=== PATIENT | female | born 1985 | race Caucasian/White ===

== ENCOUNTER 2017-11-02 21:20 | Observation (INO) | payer MEDICAID ==
[~2017-11-02] VITALS: Ht 149.9 cm; Wt 70.0 kg
[2017-11-02 21:21] VITALS: BP 126/62; PULSE 87; RESP 16; TEMP 98.5; O2SAT 100
[2017-11-02 22:00] VITALS: BP 127/61; PULSE 78; RESP 14; O2SAT 99
[2017-11-02] MEDS ORDERED: NITROGLYCERIN 0.4 MG SL 25 TABS/BTL SL ONE (22:15)
[2017-11-02] MEDS ORDERED: ASPIRIN 325 MG TAB PO ONE (22:15)
--- NOTE | 2017-11-02 22:25 | PD ---
HPI Chief Complaint: Chest Pain Time Seen by Provider: 22:03 Travel History International Travel<30 days: No Contact w/Intl Traveler<30days: No Traveled to known affect area: No History of Present Illness HPI 32-year-old female that presents to the ED for evaluation of chest pain. Patient has had this chest pain since around 1:00 this afternoon. Per patient the chest pain did not go more severe until 7:00. She's never had this before. Per patient he feels like a pressure. Feels like something sitting on her chest and it feels like her heart palpitates and that he states that the day when he calms down it gets or shortness of breath. She denies having any history of this in the past. No history of heart disease on herself but she states that she has a long family history of multiple members including grandmother as well as mother having from heart attack at a young age. Per patient and her mother at age 45 and grandmother at age 50 and both of them had heart issues starting on her 30s. She did took an aspirin before this started. Denies any urinary or bowel movement issues. No cough or runny nose. States feeling dizzy. Based is mainly on the chest and does not move anywhere. No trauma or injury. No allergies to medication. Hasn't seen anybody for this. Per patient the pain is 7 out of 10. States having a history of smoking in the past. PFSH Past Medical History Respiratory: Yes (PE) ?: Not LMP: 10/07/17 Social History Alcohol Use: No Tobacco Use: No Substance Use: No Allergies-Medications (Allergen,Severity, Reaction): Coded Allergies: No Known Allergies (Unverified , 11/02/17) Review of Systems Except as stated in HPI: all other systems reviewed are Neg Physical Exam Narrative GENERAL: SKIN: Warm and dry. HEAD: Atraumatic. Normocephalic. EYES: Pupils equal and round. No scleral icterus. No injection or drainage. ENT: No nasal bleeding or discharge. Mucous membranes pink and moist. Tongue is midline. No uvula deviation. NECK: Trachea midline. No JVD. CARDIOVASCULAR: Regular rate and rhythm. No murmurs, S3, S4. RESPIRATORY: No accessory muscle use. Clear to auscultation. Breath sounds equal bilaterally. GASTROINTESTINAL: Abdomen soft, non-tender, nondistended. Hepatic and splenic margins not palpable. MUSCULOSKELETAL: Extremities without clubbing, cyanosis, or edema. No obvious deformities. Full range of motion of the upper and lower extremities bilaterally. 2+ pulses bilaterally. NEUROLOGICAL: Awake and alert. No obvious cranial nerve deficits. Motor grossly within normal limits. Five out of 5 muscle strength in the arms and legs. Normal speech. PSYCHIATRIC: Appropriate mood and affect; insight and judgment normal. Data Data Last Documented VS Vital Signs Date Time Temp Pulse Resp B/P (MAP) Pulse Ox O2 Delivery O2 Flow Rate FiO2 11/02/17 22:07 78 16 98 Room Air 11/02/17 21:21 98.5 126/62 (83) Orders Orders Electrocardiogram (11/02/17 22:09) Complete Blood Count With Diff (11/02/17 22:09) Comprehensive Metabolic Panel (11/02/17 22:09) Ckmb (Isoenzyme) Profile (11/02/17 22:09) Troponin I (11/02/17 22:09) Prothrombin Time / Inr (Pt) (11/02/17 22:09) Act Partial Throm Time (Ptt) (11/02/17 22:09) Lipase (11/02/17 22:09) D-Dimer (11/02/17 22:09) Magnesium (Mg) (11/02/17 22:09) Chest, Single Ap (11/02/17 22:09) Iv Access Insert/Monitor (11/02/17 22:09) Ecg Monitoring (11/02/17 22:09) Oximetry (11/02/17 22:09) Aspirin (Aspirin) (11/02/17 22:15) Nitroglycerin Sl (Nitrostat Sl) (11/02/17 22:15) MDM Medical Decision Making Medical Screen Exam Complete: Yes Emergency Medical Condition: Yes Medical Record Reviewed: Yes Interpretation(s) EKG shows sinus rhythm with no sign of acute ischemia or arrythmia read by me and attending. Differential Diagnosis Chest pain versus ACS versus angina versus anxiety versus PE versus NSTEMI Narrative Course 32-year-old female that presents to the ED for evaluation of chest pain. Patient was properly examined and was found to have signs and symptoms concerning with cardiac disease. She does have a significant family history. She has never been here before and upper she doesn't have any risk factors other than family history is concerning the way she is describing her pain. She did tell me that she's had DVTs in the past years ago and no longer takes any blood thinners. This time I recommend labs and imaging. Labs and imaging were ordered. Given aspirin and nitro. Case will be signed out to my attending pending disposition likely admission to the chest pain center if everything is negative. Bandar Islas Nov 02, 2017 22:25
--- NOTE | 2017-11-02 22:36 | RADRPT ---
EXAM DATE/TIME: 11/02/2017 22:27 [facility] COMPARISON: No previous studies available for comparison. INDICATIONS : Chest pain. MEDICAL HISTORY : None. SURGICAL HISTORY : Fusion, thoracic. ENCOUNTER: Initial ACUITY: 1 day PAIN SCORE: 7/10 LOCATION: Bilateral chest FINDINGS: A single view of the chest demonstrates the lungs to be symmetrically aerated without evidence of mas s, infiltrate or effusion. The cardiomediastinal contours are unremarkable. Fixation hardware in the thoracolumbar spine. Osseous structures are intact. CONCLUSION: 1. No acute cardiopulmonary disease. Danny Denis MD on November 02, 2017 at 22:34 Board Certified Radiologist. This report was verified electronically.
[2017-11-02 22:44] LABS: AUTOMATED NEUTROPHIL # 7.6 TH/MM3 (1.8-7.7); BASOPHIL # 0.1 TH/MM3 (0-0.2); BASOPHIL % 0.7 % (0.0-2.0); EOSINOPHIL # 0.5 TH/MM3 (0-0.4); EOSINOPHIL % 3.7 % (0.0-4.0); HEMOGLOBIN 13.2 GM/DL (11.6-15.3); LYMPH % 33.3 % (9.0-44.0); LYMPHOCYTE # 4.5 TH/MM3 (1.0-4.8); MEAN CELL VOLUME 92.5 FL (80.0-100.0); MEAN CORPUSCULAR HEMOGLOBIN 32.2 PG (27.0-34.0); MEAN CORPUSCULAR HGB CONC 34.8 % (32.0-36.0); MEAN PLATELET VOLUME 7.5 FL (7.0-11.0); MONO % 6.1 % (0.0-8.0); MONOCYTE # 0.8 TH/MM3 (0-0.9); NEUT % 56.2 % (16.0-70.0); PLATELET COUNT 297 TH/MM3 (150-450); RED CELL DISTRIBUTION WIDTH 12.6 % (11.6-17.2); WHITE BLOOD COUNT 13.5 TH/MM3 (4.0-11.0)
[2017-11-02 22:46] VITALS: RESP 14; O2SAT 99
[2017-11-02 22:58] LABS: ALBUMIN 3.5 GM/DL (3.4-5.0); ALT (GPT) 25 U/L (10-53); AST (GOT) 14 U/L (15-37); BICARBONATE 28.2 MEQ/L (21.0-32.0); BLOOD UREA NITROGEN 14 MG/DL (7-18); CALCIUM 8.3 MG/DL (8.5-10.1); CHLORIDE 108 MEQ/L (98-107); CREATININE 0.71 MG/DL (0.50-1.00); GLOMERULAR FILTRATION RATE 96 ML/MIN (>89); GLUCOSE,RANDOM 87 MG/DL (74-106); MAGNESIUM 2.2 MG/DL (1.5-2.5); SODIUM (NA) 141 MEQ/L (136-145)
[2017-11-02 23:02] LABS: ALKALINE PHOSPHATASE 46 U/L (45-117); TOTAL BILIRUBIN ADULT 0.1 MG/DL (0.2-1.0); TOTAL PROTEIN 6.6 GM/DL (6.4-8.2); TROPONIN I LESS THAN 0.02 NG/ML (0.02-0.05)
[2017-11-02 23:10] LABS: INTERNATIONAL NORMALIZED RATIO 0.9 RATIO; PROTHROMBIN TIME - PATIENT 9.5 SEC (9.8-11.6)
[2017-11-02 23:16] LABS: D-DIMER 0.62 MG/L FEU (0.00-0.50)
[2017-11-03] VITALS (7 sets, daily range): BP systolic 87–107; BP diastolic 44–55; PULSE 61–70; RESP 14–18; TEMP 95.9–98.1; O2SAT 94–98
[2017-11-03] MEDS ORDERED: MORPHINE SULFATE 2 MG/ML INJ IV PUSH ONE (01:00)
[2017-11-03] MEDS ORDERED: SODIUM CHLORIDE 0.9% FLUSH 10 ML FLUSH IV FLUSH PRN (02:15)
[2017-11-03 03:49] LABS: TROPONIN I LESS THAN 0.02 NG/ML (0.02-0.05)
[2017-11-03] MEDS: MORPHINE SULFATE 2 MG/ML INJ IV PRN ×2 (05:02→10:01)
[2017-11-03 06:35] LABS: TROPONIN I LESS THAN 0.02 NG/ML (0.02-0.05)
[2017-11-03] MEDS ORDERED: ONDANSETRON HCL 4 MG/2 ML VIAL IV PUSH PRN (07:30)
[2017-11-03] MEDS ORDERED: NITROGLYCERIN 0.4 MG SL 25 TABS/BTL SL PRN (07:30)
[2017-11-03] MEDS ORDERED: ACETAMINOPHEN 500 MG CPLT PO PRN (07:30)
[2017-11-03] MEDS ORDERED: SODIUM CHLORIDE 0.9% FLUSH 10 ML FLUSH IV FLUSH SCH (09:00)
[2017-11-03] MEDS ORDERED: ASPIRIN 325 MG TAB PO SCH (09:00)
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
[2017-11-03] MEDS ORDERED: IOHEXOL 350 MG/ML 10 ML VIAL (for RAD DIAG) IVCONTRAST ONE (09:50)
--- NOTE | 2017-11-03 10:10 | RADRPT ---
EXAM DATE/TIME: 11/03/2017 09:46 [facility] COMPARISON: No previous studies available for comparison. INDICATIONS : Substernal chest pain for two days. IV CONTRAST: 50 cc Omnipaque 350 (iohexol) IV RADIATION DOSE: 11.66 CTDIvol (mGy) MEDICAL HISTORY : pulmonary embolism SURGICAL HISTORY : Tubal ligation. ENCOUNTER: Initial ACUITY: 2 days PAIN SCALE: 6/10 LOCATION: substernal chest TECHNIQUE: Volumetric scanning of the chest was performed using a pulmonary embolism protocol MIP images were re constructed. Using automated exposure control and adjustment of the mA and/or kV according to patien t size, radiation dose was kept as low as reasonably achievable to obtain optimal diagnostic quality images. DICOM format image data is available electronically for review and comparison. Follow-up recommendations for detected pulmonary nodules are based at a minimum on nodule size and pa tient risk factors according to Fleischner Society Guidelines. FINDINGS: PULMONARY ARTERIES: No filling defects are seen in the pulmonary arteries through the segmental level. LUNGS: There is no consolidation or pneumothorax . No concerning pulmonary nodule is visualized. PLEURAE: There is no pleural thickening or pleural effusion. MEDIASTINUM: There is good visualization of the great vessels of the middle mediastinum. No evidence of mediastin al or hilar adenopathy/mass. MUSCULOSKELETAL: There is surgical hardware at the lower thoracic spine. MISCELLANEOUS: The visualized upper abdominal organs demonstrate no acute abnormality. Bilateral breast implants are present. CONCLUSION: No pulmonary embolus. Dustin Huang MD on November 03, 2017 at 10:07 Board Certified Radiologist. This report was verified electronically.
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
[2017-11-03] MEDS ORDERED: KETOROLAC TROMETHAMINE 30 MG/ML (IVP) VIAL IV PUSH ONE (11:30)
--- NOTE | 2017-11-03 16:35 | EKG ---
Date Performed: 11/03/2017 Time Performed: 02:58:28 PTAGE: 32 years EKG: SINUS BRADYCARDIA BORDERLINE ECG NO SIG CHANGE PREVIOUS TRACING : 11/02/2017 22.16 DOCTOR: Martin Dennis Interpretating Date/Time 11/03/2017 16:33:35
--- NOTE | 2017-11-03 16:35 | EKG ---
Date Performed: 11/03/2017 Time Performed: 05:40:21 PTAGE: 32 years EKG: Sinus rhythm NORMAL ECG NO PREVIOUS TRACING DOCTOR: Martin Dennis Interpretating Date/Time 11/03/2017 16:33:19
--- NOTE | 2017-11-03 16:36 | EKG ---
Date Performed: 11/02/2017 Time Performed: 22:16:32 PTAGE: 32 years EKG: Sinus rhythm NORMAL ECG NO PREVIOUS TRACING DOCTOR: Martin Dennis Interpretating Date/Time 11/03/2017 16:34:27
--- NOTE | 2017-11-03 16:38 | TR ---
Date Performed: 11/03/2017 Time Performed: 10:50:23 DOCTOR: Martin Dennis DRUG LIST: CLINICAL HISTORY: CHEST PAIN REASON FOR TEST: REASON FOR ENDING: OBSERVATION: CONCLUSION: Oscar protocol completed. Stopped sec to reaching target heart rate and leg fatigue. Maximum WX=015 Target HR Thrdjnct=070.0% Maximum DG=380/80 Total Exercise Time=9:23. No reprod chest pain. No ectopy. Great exercise tolerance. Normal bp respionse. St segments upsloping. Recovery quic k and unremarkable. COMMENTS:
== END 2017-11-03 12:42 | disposition home or self-care (01) ==
LOC: NEPE 21:20 → NEDA 11-03 00:27 → NEPHCDU 11-03 03:17
PROVIDERS: ADMIT Internal Medicine Interventional Cardiology; ATTEND Internal Medicine Interventional Cardiology
DX: R07.89 Other chest pain (principal); F41.1 Generalized anxiety disorder; R94.31 Abnormal electrocardiogram [ECG] [EKG]; Z86.718 Personal history of other venous thrombosis and embolism; Z87.891 Personal history of nicotine dependence; Z82.49 Family history of ischemic heart disease and other diseases of the circulatory system
CPT/HCPCS: 71045; 71275; 80053; 82550; 83690; 83735; 84484; 84702; 85025; 85379; 85610; 85730; 93005; 93017; 96374; 96375; 96376; 99285; G0378; J1885; J2270; Q9967

== ENCOUNTER 2017-12-24 09:04 | Emergency (ER) | payer MEDICAID ==
[~2017-12-24] VITALS: Ht 149.9 cm; Wt 68.0 kg
[2017-12-24 09:07] VITALS: BP 138/65; PULSE 90; RESP 18; TEMP 98.3; O2SAT 97
[2017-12-24 09:25] VITALS: BP 129/78; PULSE 84; RESP 18; O2SAT 97
[2017-12-24] MEDS ORDERED: TRAM50TA PO (09:26)
[2017-12-24] MEDS ORDERED: MORP1TAB24 PO (09:26)
--- NOTE | 2017-12-24 10:09 | PD ---
HPI Chief Complaint: Chest Pain Time Seen by Provider: 09:48 Travel History International Travel<30 days: No Contact w/Intl Traveler<30days: No Traveled to known affect area: No History of Present Illness HPI The patient was seen and examined in the presence of the nurse. This patient has numerous complaints. She reports diffuse body aches. Worst is in her shoulder region. No fall or injury. She reports having a fever at home. She has an occasional cough. No runny nose or congestion. No vomiting or diarrhea or abdominal pains. Symptom severity is moderate. Duration 2 weeks. No alleviating factors. No exacerbating factors. She is not having chest pain. PFSH Past Medical History Cardiovascular Problems: Yes Diabetes: No Medical other: Yes (CHRONIC BACK PAIN) Respiratory: Yes (PE) Tetanus Vaccination: < 5 Years Influenza Vaccination: Yes ?: Not LMP: 12/04/17 Tubal Ligation: Yes Past Surgical History Tonsillectomy: Yes (ADENOIDS WELL) Other Surgery: Yes (CARPAL TUNNEL) Family History Family Myocardial Infarction: Yes (mother at 35, stent at 45) Social History Alcohol Use: No Tobacco Use: Yes (2-3 CIGS A DAY) Substance Use: No Allergies-Medications (Allergen,Severity, Reaction): Coded Allergies: No Known Allergies (Unverified , 12/24/17) Reported Meds & Prescriptions Reported Meds & Active Scripts Active Reported Morphine ER (Morphine Sulfate) 15 Mg Tab 15 Mg PO BID Tramadol (Tramadol HCl) 50 Mg Tab 50 Mg PO Q6H PRN Review of Systems General / Constitutional: Positive: Fever Eyes: No: Visual changes HENT: No: Headaches Cardiovascular: No: Chest Pain or Discomfort Respiratory: Positive: Cough, No: Shortness of Breath Gastrointestinal: No: Abdominal Pain Genitourinary: No: Dysuria Musculoskeletal: Positive: Myalgias, No: Pain Skin: No Rash Neurologic: No: Weakness Psychiatric: Positive: Anxiety, No: Depression Endocrine: No: Polydipsia Hematologic/Lymphatic: No: Easy Bruising Physical Exam Narrative GENERAL: Well-nourished, well-developed patient in no apparent distress. SKIN: Focused skin assessment reveals no rash and nodules. Skin is Warm and dry. HEAD: Atraumatic. Normocephalic. EYES: Pupils equal and round. No scleral icterus. No injection or drainage. ENT: No nasal bleeding or discharge. Mucous membranes pink and moist. Throat clear NECK: Trachea midline. No JVD. No meningeal signs CARDIOVASCULAR: Regular rate and rhythm. No murmur appreciated. RESPIRATORY: No accessory muscle use. Clear to auscultation. Breath sounds equal bilaterally. GASTROINTESTINAL: Abdomen soft, non-tender, nondistended. Hepatic and splenic margins not palpable. MUSCULOSKELETAL: No obvious deformities. No clubbing. No cyanosis. No edema. Has diffuse muscular tenderness of the back and shoulders. No bony tenderness. NEUROLOGICAL: Awake and alert. No obvious cranial nerve deficits. Motor grossly within normal limits. Normal speech. PSYCHIATRIC: Appropriate mood and affect; insight and judgment normal. Data Data Last Documented VS Vital Signs Date Time Temp Pulse Resp B/P (MAP) Pulse Ox O2 Delivery O2 Flow Rate FiO2 12/24/17 13:17 12/24/17 12:40 70 18 98 Room Air 12/24/17 09:07 98.3 Orders Orders Iv Access Insert/Monitor (12/24/17 10:01) Chest, Single Ap (12/24/17 ) Influenzae A/B Antigen (12/24/17 10:01) Urinalysis - C+S If Indicated (12/24/17 10:01) Complete Blood Count With Diff (12/24/17 10:01) Comprehensive Metabolic Panel (12/24/17 10:01) Ed Urine Pregnancytest Poc (12/24/17 10:02) Ketorolac Inj (Toradol Inj) (12/24/17 10:30) Oxycodone-Acetamin 5-325 Mg (Percocet (12/24/17 13:00) Labs Laboratory Tests Test 12/24/17 10:00 White Blood Count 7.2 TH/MM3 Red Blood Count 4.16 MIL/MM3 Hemoglobin 13.4 GM/DL Hematocrit 38.4 % Mean Corpuscular Volume 92.2 FL Mean Corpuscular Hemoglobin 32.2 PG Mean Corpuscular Hemoglobin Concent 34.9 % Red Cell Distribution Width 12.5 % Platelet Count 258 TH/MM3 Mean Platelet Volume 8.0 FL Neutrophils (%) (Auto) 52.7 % Lymphocytes (%) (Auto) 35.7 % Monocytes (%) (Auto) 7.6 % Eosinophils (%) (Auto) 3.5 % Basophils (%) (Auto) 0.5 % Neutrophils # (Auto) 3.8 TH/MM3 Lymphocytes # (Auto) 2.6 TH/MM3 Monocytes # (Auto) 0.5 TH/MM3 Eosinophils # (Auto) 0.3 TH/MM3 Basophils # (Auto) 0.0 TH/MM3 CBC Comment DIFF FINAL Differential Comment Urine Color YELLOW Urine Turbidity CLEAR Urine pH 7.5 Urine Specific [place] 1.013 Urine Protein TRACE mg/dL Urine Glucose (UA) NEG mg/dL Urine Ketones NEG mg/dL Urine Occult Blood NEG Urine Nitrite NEG Urine Bilirubin NEG Urine Urobilinogen LESS THAN 2.0 MG/DL Urine Leukocyte Esterase NEG Urine RBC LESS THAN 1 /hpf Urine WBC 1 /hpf Urine Squamous Epithelial Cells 10 /hpf Urine Bacteria RARE /hpf Urine Mucus MOD /lpf Microscopic Urinalysis Comment CULT NOT INDICATED Blood Urea Nitrogen 8 MG/DL Creatinine 0.74 MG/DL Random Glucose 101 MG/DL Total Protein 6.5 GM/DL Albumin 3.5 GM/DL Calcium Level 8.5 MG/DL Alkaline Phosphatase 43 U/L Aspartate Amino Transf (AST/SGOT) 18 U/L Alanine Aminotransferase (ALT/SGPT) 28 U/L Total Bilirubin 0.3 MG/DL Sodium Level 142 MEQ/L Potassium Level 3.8 MEQ/L Chloride Level 108 MEQ/L Carbon Dioxide Level 27.1 MEQ/L Anion Gap 7 MEQ/L Estimat Glomerular Filtration Rate 92 ML/MIN [facility] Medical Decision Making Medical Screen Exam Complete: Yes Emergency Medical Condition: Yes Medical Record Reviewed: Yes Differential Diagnosis Flu syndrome, fibromyalgia, nonspecific myalgias, viral syndrome Narrative Course I have reviewed the patient's electronic medical record. Patient was recently admitted here for chest pain evaluation and had negative stress test, also negative CTA of the chest Patient has some vague complaints most notably myalgias and fever. May have a viral syndrome. I have ordered lab studies and a chest x-ray Urine is negative Urinalysis was normal I reviewed her chest x-ray which was normal CBC is normal Metabolic profile is normal However, before I could get back to the patient to review the workup and reassess her and come up with a plan she signed out AGAINST MEDICAL ADVICE and left. Prior to her leaving [facility] she was chowing down burger and fries from a fast food restaurant. Diagnosis Primary Impression: Myalgia Additional Impression: Fever Qualified Codes: R50.9 - Fever, unspecified Disposition: AGAINST MEDICAL ADVICE Cheo Lu MD Dec 24, 2017 10:09
--- NOTE | 2017-12-24 10:23 | RADRPT ---
EXAM DATE/TIME: 12/24/2017 10:07 [facility] COMPARISON: CHEST SINGLE AP, November 02, 2017, 22:27. INDICATIONS : Fever and chest pain. MEDICAL HISTORY : None. SURGICAL HISTORY : Lumbar fusion ENCOUNTER: Initial ACUITY: 2 days PAIN SCORE: 8/10 LOCATION: Bilateral chest FINDINGS: A single view of the chest demonstrates the lungs to be symmetrically aerated without evidence of mas s, infiltrate or effusion. The cardiomediastinal contours are unremarkable. Osseous structures are intact with stable transpedicular posterior fixation in the thoracolumbar spine. CONCLUSION: No acute cardiopulmonary process to explain current clinical symptoms. Wilver Galindo MD on December 24, 2017 at 10:15 Board Certified Radiologist. This report was verified electronically.
[2017-12-24] MEDS ORDERED: KETOROLAC TROMETHAMINE 30 MG/ML (IVP) VIAL IVP ONE (10:30)
[2017-12-24 10:33] LABS: AUTOMATED NEUTROPHIL # 3.8 TH/MM3 (1.8-7.7); BASOPHIL % 0.5 % (0.0-2.0); EOSINOPHIL # 0.3 TH/MM3 (0-0.4); EOSINOPHIL % 3.5 % (0.0-4.0); HEMATOCRIT 38.4 % (35.0-46.0); HEMOGLOBIN 13.4 GM/DL (11.6-15.3); LYMPH % 35.7 % (9.0-44.0); LYMPHOCYTE # 2.6 TH/MM3 (1.0-4.8); MEAN CELL VOLUME 92.2 FL (80.0-100.0); MEAN CORPUSCULAR HEMOGLOBIN 32.2 PG (27.0-34.0); MEAN CORPUSCULAR HGB CONC 34.9 % (32.0-36.0); MONO % 7.6 % (0.0-8.0); MONOCYTE # 0.5 TH/MM3 (0-0.9); NEUT % 52.7 % (16.0-70.0); PLATELET COUNT 258 TH/MM3 (150-450); RED BLOOD COUNT 4.16 MIL/MM3 (4.00-5.30); RED CELL DISTRIBUTION WIDTH 12.5 % (11.6-17.2); WHITE BLOOD COUNT 7.2 TH/MM3 (4.0-11.0)
[2017-12-24 10:39] LABS: BACTERIA, URINE RARE /hpf; BILIRUBIN, URINE NEG (NEG); BLOOD, URINE NEG (NEG); GLUCOSE,URINE NEG (NEG); KETONE, URINE NEG (NEG); MUCUS URINE MOD /lpf (OCC); NITRITE,URINE NEG (NEG); PH, URINE 7.5 (5.0-8.5); SQUAMOUS EPITHELIAL CELL URINE 10 /hpf (0-5); URINE COLOR YELLOW (YELLW/STRAW); URINE LEUKOCYTE ESTERASE NEG (NEG)
[2017-12-24 10:57] LABS: ALBUMIN 3.5 GM/DL (3.4-5.0); AST (GOT) 18 U/L (15-37); BICARBONATE 27.1 MEQ/L (21.0-32.0); BLOOD UREA NITROGEN 8 MG/DL (7-18); CALCIUM 8.5 MG/DL (8.5-10.1); CHLORIDE 108 MEQ/L (98-107); CREATININE 0.74 MG/DL (0.50-1.00); GLOMERULAR FILTRATION RATE 92 ML/MIN (>89); GLUCOSE,RANDOM 101 MG/DL (74-106); SODIUM (NA) 142 MEQ/L (136-145)
[2017-12-24 11:02] LABS: ALKALINE PHOSPHATASE 43 U/L (45-117); ALT (GPT) 28 U/L (10-53); TOTAL BILIRUBIN ADULT 0.3 MG/DL (0.2-1.0); TOTAL PROTEIN 6.5 GM/DL (6.4-8.2)
[2017-12-24 12:40] VITALS: BP 135/70; PULSE 70; RESP 18; O2SAT 98
[2017-12-24] MEDS ORDERED: oxyCODONE/ACETAMINOPHEN 5 MG/325 MG TAB PO ONE (13:00)
== END 2017-12-24 13:49 | disposition left against medical advice (07) ==
LOC: NEPC 09:04
DX: M79.1 Myalgia (principal); R50.9 Fever, unspecified; R05 Cough; G89.29 Other chronic pain; M54.9 Dorsalgia, unspecified; Z72.0 Tobacco use; Z53.21 Procedure and treatment not carried out due to patient leaving prior to being seen by health care provider
CPT/HCPCS: 71045; 80053; 81001; 84703; 85025; 87804; 96374; 99284; J1885

== ENCOUNTER 2018-01-24 17:30 | Emergency (ER) | payer MEDICAID ==
[~2018-01-24] VITALS: Ht 149.9 cm; Wt 75.0 kg
[~2018-01-24 17:30] MED LIST: MORP1TAB24 PO; TRAM50TA PO
[2018-01-24 17:42] VITALS: BP 115/56; PULSE 95; RESP 18; TEMP 98.3; O2SAT 97
[2018-01-24] MEDS ORDERED: KETOROLAC TROMETHAMINE 60 MG/2 ML (IM) VIAL IM ONE (18:30)
[2018-01-24] MEDS ORDERED: ORPHENADRINE INJ 60 MG/2 ML AMP IM ONE (18:30)
[2018-01-24] MEDS ORDERED: DEXAMETHASONE SOD PHOS 4 MG/ML VIAL IM ONE (18:30)
--- NOTE | 2018-01-24 18:33 | PD ---
HPI Chief Complaint: Back/ Neck Pain or Injury Time Seen by Provider: 18:22 Travel History International Travel<30 days: No Contact w/Intl Traveler<30days: No Traveled to known affect area: No History of Present Illness HPI 32-year-old female presents to the emergency department for evaluation of low back pain. Patient states she fell down 2 steps on her low back yesterday evening. She reports severe pain since then. She does have history of chronic back pain with previous surgery. She currently takes tramadol and morphine at home for pain. Patient denies any head injury or loss of consciousness. No neck pain. No chest pain or abdominal pain. No vomiting. However, she does feel nauseated from the pain. Patient denies any chance of reporting a previous tubal ligation. Current pain is 10/10 to the lower back that radiates down the left leg. Movement, ambulation exacerbate pain. No alleviating factors. Moderate severity. Patient denies any history of IV drug use. No fevers or chills. No loss of bowel or bladder control. No saddle anesthesias. PFSH Past Medical History Cardiovascular Problems: Yes Diabetes: No Respiratory: Yes (PE) ?: Not Tubal Ligation: Yes Past Surgical History Tonsillectomy: Yes (ADENOIDS WELL) Other Surgery: Yes (CARPAL TUNNEL) Social History Alcohol Use: No Tobacco Use: Yes (2-3 CIGS A DAY) Substance Use: No Allergies-Medications (Allergen,Severity, Reaction): Coded Allergies: acetaminophen (Verified Allergy, Intermediate, HIVES/ITCHING, 01/24/18) hydrocodone (Verified Allergy, Intermediate, HIVES/ITCHING, 01/24/18) oxycodone (Verified Allergy, Intermediate, HIVES/ITCHING, 01/24/18) Reported Meds & Prescriptions Reported Meds & Active Scripts Active Medrol Dosepak (Methylprednisolone) 4 Mg Dspk 4 Mg PO DIRECTED Per Pharmacist direction Flexeril (Cyclobenzaprine HCl) 10 Mg Tab 10 Mg PO TID PRN Diclofenac Potassium 50 Mg Tab 50 Mg PO TID PRN Reported Morphine ER (Morphine Sulfate) 15 Mg Tab 15 Mg PO BID Tramadol (Tramadol HCl) 50 Mg Tab 50 Mg PO Q6H PRN Review of Systems Except as stated in HPI: all other systems reviewed are Neg Physical Exam Narrative GENERAL: Well-nourished, well-developed female patient, afebrile. SKIN: Focused skin assessment warm/dry. No lacerations or abrasions. HEAD: Normocephalic. Atraumatic. EYES: No scleral icterus. No injection or drainage. NECK: Supple, trachea midline. No JVD or lymphadenopathy. CARDIOVASCULAR: Regular rate and rhythm without murmurs, gallops, or rubs. RESPIRATORY: Breath sounds equal bilaterally. No accessory muscle use. Lung sounds are clear to auscultation. GASTROINTESTINAL: Abdomen soft, non-tender, nondistended. MUSCULOSKELETAL: No cyanosis, or edema. Bilateral lower extremity strength 4/5 due to pain. All extremities are neurovascularly intact. BACK: No without obvious deformity. No CVA tenderness. Patient has tenderness to palpation over midline lumbar spine. Straight leg raise is positive on the left side. No clonus. Data Data Last Documented VS Vital Signs Date Time Temp Pulse Resp B/P (MAP) Pulse Ox O2 Delivery O2 Flow Rate FiO2 01/24/18 19:10 16 01/24/18 17:42 98.3 95 115/56 (75) 97 Orders Orders Spine, Lumbar - Ltd (Ap & Lat) (01/24/18 ) Pelvis, Ap Only (Routine) (01/24/18 ) Ketorolac Inj (Toradol Inj) (01/24/18 18:30) Orphenadrine Inj (Norflex Inj) (01/24/18 18:30) Dexamethasone Inj (Decadron Inj) (01/24/18 18:30) MDM Medical Decision Making Medical Screen Exam Complete: Yes Emergency Medical Condition: Yes Medical Record Reviewed: Yes Interpretation(s) pelvis x-ray - CONCLUSION: No acute disease. x-ray of the lumbar spine - CONCLUSION: Postsurgical change presumably from compression at the superior aspect of L1. No other abnormality seen. Differential Diagnosis Acute exacerbation of chronic back pain versus sciatica versus herniated disc versus fracture Narrative Course 32-year-old female presents to the emergency department for evaluation of low back pain after she fell yesterday evening. She denies any other injury or complaint. Patient is already on tramadol as well as morphine for pain. Patient is given Toradol 60 mg IM, Norflex 60 mg IM, dexamethasone 8 mg IM. X- ray lumbar spine and pelvis are ordered and pending. X-ray of the lumbar spine shows postsurgical change presumably from compression at the superior aspect of L1. No other abnormality seen.. X-ray of the pelvis shows no acute disease. I offered the patient an LSO brace, but she declined stating she already has a back brace that she will use. She reports improved pain from injections. She will be discharged a prescription for diclofenac, Flexeril, Medrol Dosepak. She is to follow the primary care physician return here for any acute worsening of symptoms. Diagnosis Primary Impression: Low back pain Qualified Codes: M54.5 - Low back pain Referrals: Primary Care Physician 1 day Patient Instructions: Acute Low Back Pain (ED), General Instructions Departure Forms: Tests/Procedures, Work Release Enter return to work date: January 28, 2018 Additional Instructions: Continue prescribed pain medication as needed for pain. Take Medrol Dosepak as directed. Start this tomorrow. Take Flexeril as directed as needed for muscle spasm/pain. Take diclofenac as directed as needed with food for pain. Do not take with other anti-inflammatories including ibuprofen and naproxen. Follow-up with a primary care physician. Return to the emergency department for any acute worsening of symptoms. Med/Other Pt SpecificInfo: Prescription(s) given Scripts Methylprednisolone Dosepak (Medrol Dosepak) 4 Mg Dspk 4 MG PO DIRECTED, #1 DSPK 0 Refills Per Pharmacist direction Prov: Jillian Fish 01/24/18 Cyclobenzaprine (Flexeril) 10 Mg Tab 10 MG PO TID Y for MUSCLE SPASM, #21 TAB 0 Refills Prov: Jillian Fish 01/24/18 Diclofenac Potassium (Diclofenac Potassium) 50 Mg Tab 50 MG PO TID Y for PAIN SCALE 1 TO 10, #21 TAB 0 Refills Prov: Jillian Fish 01/24/18 Disposition: 01 DISCHARGE HOME Condition: Stable Jillian Fish January 24, 2018 18:33
[2018-01-24] MEDS ORDERED: DICL50TA PO (20:24)
[2018-01-24] MEDS ORDERED: MEDR4PAK PO (20:24)
[2018-01-24] MEDS ORDERED: CYCL10TA PO (20:24)
--- NOTE | 2018-01-24 20:26 | RADRPT ---
EXAM DATE/TIME: 01/24/2018 18:46 [facility] COMPARISON: No previous studies available for comparison. INDICATIONS : Pain due to fall. MEDICAL HISTORY : None. SURGICAL HISTORY : Lumbar fusion ENCOUNTER: Initial ACUITY: 2 days PAIN SCORE: 9/10 LOCATION: Left pelvis SI joint. FINDINGS: A single frontal view of the pelvis demonstrates no evidence of fracture. The bony pelvic ring is in tact. Bony mineralization is normal. The soft tissues are intact. CONCLUSION: No acute disease. Dustin Huang MD on January 24, 2018 at 20:24 Board Certified Radiologist. This report was verified electronically.
--- NOTE | 2018-01-24 20:28 | RADRPT ---
EXAM DATE/TIME: 01/24/2018 18:49 [facility] COMPARISON: No previous studies available for comparison. INDICATIONS : Pain due to fall. MEDICAL HISTORY : None. SURGICAL HISTORY : Lumbar fusion ENCOUNTER: Initial ACUITY: 2 days PAIN SCORE: 9/10 LOCATION: Left L-spine, SI joint. FINDINGS: Two view examination was performed. There are five non-rib bearing vertebral bodies. The lumbar yordy tebral bodies are normally aligned. There are transpedicular screws seen at the T11-L3 levels. There appears to be a mild compression deformity of the superior aspect of L1. Presumably this is the reaso n for the prior surgery. The remaining lumbar vertebral bodies appear normal in height. The sacroilia c joints are intact. The disc spaces are maintained. The pedicles are intact. Bony mineralization i s normal. No acute fracture is identified. CONCLUSION: Postsurgical change presumably from compression at the superior aspect of L1. No other abnormality se en. Dustin Huang MD on January 24, 2018 at 20:24 Board Certified Radiologist. This report was verified electronically.
== END 2018-01-24 20:41 | disposition home or self-care (01) ==
LOC: NEPK 17:30
DX: M54.5 Low back pain (principal); F17.210 Nicotine dependence, cigarettes, uncomplicated
CPT/HCPCS: 72100; 72170; 96372; 99284; J1100; J1885; J2360

== ENCOUNTER 2018-02-24 14:03 | Emergency (ER) | payer MEDICAID ==
[~2018-02-24] VITALS: Ht 149.9 cm; Wt 68.0 kg
[~2018-02-24 14:03] MED LIST changes: +CYCL10TA PO; +DICL50TA PO; +MEDR4PAK PO
[2018-02-24 14:08] VITALS: BP 120/56; PULSE 69; RESP 18; TEMP 98.3; O2SAT 97
[2018-02-24] MEDS ORDERED: SODIUM CHLOR 0.9% 1000 ML INJ 1,000 ML IV ONE (14:15)
--- NOTE | 2018-02-24 15:12 | PD ---
HPI Chief Complaint: Syncope/Near-Syncope Time Seen by Provider: 14:14 Travel History International Travel<30 days: No Contact w/Intl Traveler<30days: No Traveled to known affect area: No History of Present Illness HPI This is a 32-year-old female who presents to the emergency department having had an episode of syncope this morning. She says she has not been feeling well all day and she has been having increasing pain in her back and took her morphine, tramadol and Bactrim this morning for chronic back pain. She did eat breakfast. She took her blood pressure which was in the 80s and she got a to try to walk around and make herself feel better and then she lost consciousness for 2-3 seconds. She says she hit her head but currently she denies any headache and has had no vomiting. She denies having passed out before. 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 PFSH Past Medical History Cardiovascular Problems: Yes Diabetes: No Respiratory: Yes (PE) ?: Not LMP: 01/29/18 : 6 Para: 5 Miscarriage: 1 : 0 Tubal Ligation: Yes Past Surgical History Tonsillectomy: Yes (ADENOIDS WELL) Other Surgery: Yes (CARPAL TUNNEL BILATERAL) Family History Family Myocardial Infarction: Yes (mother at 35, stent at 45) Social History Alcohol Use: No Tobacco Use: Yes Substance Use: No Allergies-Medications (Allergen,Severity, Reaction): Coded Allergies: acetaminophen (Verified Allergy, Intermediate, HIVES/ITCHING, 01/24/18) hydrocodone (Verified Allergy, Intermediate, HIVES/ITCHING, 01/24/18) oxycodone (Verified Allergy, Intermediate, HIVES/ITCHING, 01/24/18) Reported Meds & Prescriptions Reported Meds & Active Scripts Active Medrol Dosepak (Methylprednisolone) 4 Mg Dspk 4 Mg PO DIRECTED Per Pharmacist direction Flexeril (Cyclobenzaprine HCl) 10 Mg Tab 10 Mg PO TID PRN Diclofenac Potassium 50 Mg Tab 50 Mg PO TID PRN Reported Morphine ER (Morphine Sulfate) 15 Mg Tab 15 Mg PO BID Tramadol (Tramadol HCl) 50 Mg Tab 50 Mg PO Q6H PRN Review of Systems Except as stated in HPI: all other systems reviewed are Neg Physical Exam Narrative GENERAL:Well appearing, no acute distress SKIN: Focused skin assessment warm and dry. HEAD: Atraumatic. Normocephalic. EYES: Pupils equal and round. No injection or drainage. ENT: Moist mucous membranes NECK: Trachea midline. CARDIOVASCULAR: Regular rate and rhythm. No murmur appreciated. RESPIRATORY: Clear to auscultation. Breath sounds equal bilaterally. GASTROINTESTINAL: Abdomen soft, non-tender, nondistended. MUSCULOSKELETAL: No obvious deformities. NEUROLOGICAL: Awake and alert. No obvious cranial nerve deficits. Moving all extremities. PSYCHIATRIC: Appropriate mood and affect; insight and judgment normal. Data Data Last Documented VS Vital Signs Date Time Temp Pulse Resp B/P (MAP) Pulse Ox O2 Delivery O2 Flow Rate FiO2 02/24/18 14:16 70 18 97 Room Air 02/24/18 14:08 98.3 120/56 (77) Orders Orders Complete Blood Count With Diff (02/24/18 14:14) Comprehensive Metabolic Panel (02/24/18 14:14) ^ Insert Iv (02/24/18 14:14) Electrocardiogram (02/24/18 ) D-Dimer (02/24/18 14:14) Sodium Chlor 0.9% 1000 Ml Inj (Ns 1000 M (02/24/18 14:15) Ed Urine Pregnancytest Poc (02/24/18 15:48) Labs Laboratory Tests Test 02/24/18 14:30 White Blood Count 9.1 TH/MM3 Red Blood Count 4.28 MIL/MM3 Hemoglobin 13.6 GM/DL Hematocrit 39.8 % Mean Corpuscular Volume 93.0 FL Mean Corpuscular Hemoglobin 31.9 PG Mean Corpuscular Hemoglobin Concent 34.3 % Red Cell Distribution Width 13.0 % Platelet Count 301 TH/MM3 Mean Platelet Volume 7.9 FL Neutrophils (%) (Auto) 54.6 % Lymphocytes (%) (Auto) 34.2 % Monocytes (%) (Auto) 7.0 % Eosinophils (%) (Auto) 3.7 % Basophils (%) (Auto) 0.5 % Neutrophils # (Auto) 5.0 TH/MM3 Lymphocytes # (Auto) 3.1 TH/MM3 Monocytes # (Auto) 0.6 TH/MM3 Eosinophils # (Auto) 0.3 TH/MM3 Basophils # (Auto) 0.0 TH/MM3 CBC Comment DIFF FINAL Differential Comment D-Dimer Quantitative (PE/DVT) 0.48 MG/L FEU Blood Urea Nitrogen 13 MG/DL Creatinine 0.70 MG/DL Random Glucose 103 MG/DL Total Protein 6.3 GM/DL Albumin 3.7 GM/DL Calcium Level 8.3 MG/DL Alkaline Phosphatase 42 U/L Aspartate Amino Transf (AST/SGOT) 31 U/L Alanine Aminotransferase (ALT/SGPT) 39 U/L Total Bilirubin 0.3 MG/DL Sodium Level 142 MEQ/L Potassium Level 4.2 MEQ/L Chloride Level 111 MEQ/L Carbon Dioxide Level 21.2 MEQ/L Anion Gap 10 MEQ/L Estimat Glomerular Filtration Rate 98 ML/MIN MDM Medical Decision Making Medical Screen Exam Complete: Yes Emergency Medical Condition: Yes Interpretation(s) Afebrile, no tachycardia, normotension, no hypoxia [id number] test is negative No leukocytosis Electrolytes are reassuring D-dimer is 0.48 EKG: Sinus bradycardia with normal intervals and no ST changes Differential Diagnosis Medication side effect, arrhythmia, anemia, electrolyte abnormality Narrative Course This is a 32-year-old female who presents to the emergency department having had an episode where she passed out. She is nontoxic appearing, labs are all reassuring and EKG is reassuring. I suspect her syncope was in the setting of polypharmacy. Patient was advised to hold her pain medications and her Flagyl until she follows up with her pain management doctor. Diagnosis Primary Impression: Syncope Qualified Codes: R55 - Syncope and collapse Additional Impression: Polypharmacy Patient Instructions: General Instructions Additional Instructions: If you develop severe chest pain, shortness of breath, sweating, lightheadedness , dizziness or difficulty breathing return to the emergency department immediately. Followup with your primary care physician in 2-3 days if your symptoms are not resolved. Med/Other Pt SpecificInfo: No Change to Meds Disposition: 01 DISCHARGE HOME Condition: Stable Tish Modi MD Feb 24, 2018 15:12
[2018-02-24 15:15] LABS: BASOPHIL % 0.5 % (0.0-2.0); EOSINOPHIL # 0.3 TH/MM3 (0-0.4); EOSINOPHIL % 3.7 % (0.0-4.0); HEMATOCRIT 39.8 % (35.0-46.0); HEMOGLOBIN 13.6 GM/DL (11.6-15.3); LYMPH % 34.2 % (9.0-44.0); LYMPHOCYTE # 3.1 TH/MM3 (1.0-4.8); MEAN CORPUSCULAR HEMOGLOBIN 31.9 PG (27.0-34.0); MEAN CORPUSCULAR HGB CONC 34.3 % (32.0-36.0); MEAN PLATELET VOLUME 7.9 FL (7.0-11.0); MONOCYTE # 0.6 TH/MM3 (0-0.9); NEUT % 54.6 % (16.0-70.0); PLATELET COUNT 301 TH/MM3 (150-450); RED BLOOD COUNT 4.28 MIL/MM3 (4.00-5.30); WHITE BLOOD COUNT 9.1 TH/MM3 (4.0-11.0)
[2018-02-24 15:37] LABS: ALBUMIN 3.7 GM/DL (3.4-5.0); ALT (GPT) 39 U/L (10-53); AST (GOT) 31 U/L (15-37); BICARBONATE 21.2 MEQ/L (21.0-32.0); BLOOD UREA NITROGEN 13 MG/DL (7-18); CALCIUM 8.3 MG/DL (8.5-10.1); CHLORIDE 111 MEQ/L (98-107); GLOMERULAR FILTRATION RATE 98 ML/MIN (>89); GLUCOSE,RANDOM 103 MG/DL (74-106); SODIUM (NA) 142 MEQ/L (136-145)
[2018-02-24 15:40] LABS: ALKALINE PHOSPHATASE 42 U/L (45-117); TOTAL BILIRUBIN ADULT 0.3 MG/DL (0.2-1.0); TOTAL PROTEIN 6.3 GM/DL (6.4-8.2)
--- NOTE | 2018-02-25 23:13 | EKG ---
Date Performed: 02/24/2018 Time Performed: 14:30:19 PTAGE: 32 years EKG: SINUS BRADYCARDIA BORDERLINE ECG INTERPRETATION BASED ON A DEFAULT AGE OF 41 YEARS PREVIOUS TRACING : 11/03/2017 05.40 DOCTOR: Donovan Castillo Interpretating Date/Time 02/25/2018 23:01:28
== END 2018-02-24 16:42 | disposition home or self-care (01) ==
LOC: NEPD 14:03
DX: R55 Syncope and collapse (principal); R00.1 Bradycardia, unspecified; G89.29 Other chronic pain; M54.9 Dorsalgia, unspecified; Z72.0 Tobacco use
CPT/HCPCS: 80053; 84703; 85025; 85379; 93005; 99284; J7030

== ENCOUNTER 2018-03-01 12:39 | Emergency (ER) | payer MEDICAID ==
[2018-03-01 12:54] VITALS: BP 114/57; PULSE 74; RESP 16; TEMP 97.4; O2SAT 100
[2018-03-01] MEDS ORDERED: SODIUM CHLOR 0.9% 1000 ML INJ 1,000 ML IV ONE ×2 (15:00→16:15)
--- NOTE | 2018-03-01 15:03 | PD ---
HPI Chief Complaint: Cardiac Complaint Time Seen by Provider: 14:41 Travel History International Travel<30 days: No Contact w/Intl Traveler<30days: No Traveled to known affect area: No History of Present Illness HPI 32-year-old female complains a headache, chest pain, shortness of breath, generally malaise and weakness, hypertension, nausea. Patient states that she has intermittent low blood pressure for the past several weeks. Patient states that she fell recently hit the head. Patient complains of frontal headache. Patient denies any visual change. Patient denies any neck pain. Patient complains of intermittent dull aching pain and sharp pain substernally. Patient denies any pain radiation. Patient denies palpitation diaphoresis. Patient states that she has intermittent nausea. Patient denies vomiting or diarrhea. Patient denies abdominal pain. Patient denies any focal weakness or numbness of the extremity. Patient has history of chronic back pain and has been taking tramadol, morphine, diclofenac, Flexeril. Patient was seen in emergency room 5 days ago for syncope and generalized malaise and weakness and hypotension. CBC CMP EKG d-dimer were done and were within normal limits. Patient was advised to follow with local physician and hold off her pain medication. Patient states that she has not taken morphine for the last 2 days. Patient has been taking tramadol for back pain. Patient denies any symptoms of saddle anesthesia. Patient denies any problem with urinary or bowel incontinence. PFSH Past Medical History Cardiovascular Problems: Yes Diabetes: No Diminished Hearing: No Deep Vein Thrombosis: Yes Musculoskeletal: Yes (CHRONIC BACK PAIN ) Respiratory: Yes (PE) Immunizations Current: Yes Tetanus Vaccination: < 5 Years Influenza Vaccination: Yes ?: Not LMP: 01/29/2018 : 6 Para: 5 Miscarriage: 1 : 0 Tubal Ligation: Yes Past Surgical History Tonsillectomy: Yes (ADENOIDS WELL) Other Surgery: Yes (CARPAL TUNNEL BILATERAL, BREAST AUGMENTATION 2015 ) Family History Family Myocardial Infarction: Yes (mother at 35, stent at 45) Social History Alcohol Use: No Tobacco Use: Yes (/2 ppd) Substance Use: No Allergies-Medications (Allergen,Severity, Reaction): Coded Allergies: acetaminophen (Verified Allergy, Intermediate, HIVES/ITCHING, 01/24/18) hydrocodone (Verified Allergy, Intermediate, HIVES/ITCHING, 01/24/18) oxycodone (Verified Allergy, Intermediate, HIVES/ITCHING, 01/24/18) Reported Meds & Prescriptions Reported Meds & Active Scripts Active Flexeril (Cyclobenzaprine HCl) 10 Mg Tab 10 Mg PO TID PRN Reported Morphine ER (Morphine Sulfate) 15 Mg Tab 15 Mg PO BID Tramadol (Tramadol HCl) 50 Mg Tab 50 Mg PO Q6H PRN Review of Systems General / Constitutional: No: Fever Eyes: No: Visual changes HENT: Positive: Headaches Cardiovascular: Positive: Chest Pain or Discomfort Respiratory: No: Shortness of Breath Gastrointestinal: Positive: Nausea, No: Abdominal Pain Genitourinary: No: Dysuria Musculoskeletal: No: Pain Skin: No Rash Neurologic: No: Weakness Psychiatric: No: Depression Endocrine: No: Polydipsia Hematologic/Lymphatic: No: Easy Bruising Physical Exam Narrative GENERAL: Well-nourished, well-developed patient. SKIN: Focused skin assessment warm/dry. HEAD: Normocephalic. EYES: No scleral icterus. No injection or drainage. Pupils 2 mm equal reactive. NECK: Supple, trachea midline. No JVD or lymphadenopathy. CARDIOVASCULAR: Regular rate and rhythm without murmurs, gallops, or rubs. RESPIRATORY: Breath sounds equal bilaterally. No accessory muscle use. GASTROINTESTINAL: Abdomen soft, non-tender, nondistended. MUSCULOSKELETAL: No cyanosis, or edema. BACK: Nontender without obvious deformity. No CVA tenderness. Neurologic exam: Patient is awake and alert oriented 3. Patient moves all extremity well. No obvious focal neurologic deficit. Data Data Last Documented VS Vital Signs Date Time Temp Pulse Resp B/P (MAP) Pulse Ox O2 Delivery O2 Flow Rate FiO2 03/01/18 18:00 63 15 (66) 99 Room Air 03/01/18 16:00 2.00 03/01/18 12:54 97.4 Orders Orders Electrocardiogram (03/01/18 12:57) Complete Blood Count With Diff (03/01/18 12:57) Ckmb (Isoenzyme) Profile (03/01/18 12:57) Troponin I (03/01/18 12:57) Iv Access Insert/Monitor (03/01/18 12:57) Ecg Monitoring (03/01/18 12:57) Oxygen Administration (03/01/18 12:57) Oximetry (03/01/18 12:57) Comprehensive Metabolic Panel (03/01/18 12:57) Chest, Pa & Lat (03/01/18 ) Urinalysis - C+S If Indicated (03/01/18 12:57) Ed Urine Pregnancytest Poc (03/01/18 12:57) Sodium Chlor 0.9% 1000 Ml Inj (Ns 1000 M (03/01/18 15:00) Ct Brain W/O Iv Contrast(Rout) (03/01/18 14:52) Drug Screen, Random Urine (03/01/18 14:56) D-Dimer (03/01/18 15:03) Sodium Chlor 0.9% 1000 Ml Inj (Ns 1000 M (03/01/18 16:15) Ed Discharge Order (03/01/18 19:20) Labs Laboratory Tests Test 03/01/18 15:10 03/01/18 17:50 White Blood Count 11.3 TH/MM3 Red Blood Count 4.35 MIL/MM3 Hemoglobin 13.9 GM/DL Hematocrit 40.6 % Mean Corpuscular Volume 93.5 FL Mean Corpuscular Hemoglobin 31.9 PG Mean Corpuscular Hemoglobin Concent 34.1 % Red Cell Distribution Width 12.8 % Platelet Count 310 TH/MM3 Mean Platelet Volume 7.6 FL Neutrophils (%) (Auto) 64.2 % Lymphocytes (%) (Auto) 25.9 % Monocytes (%) (Auto) 6.0 % Eosinophils (%) (Auto) 3.4 % Basophils (%) (Auto) 0.5 % Neutrophils # (Auto) 7.3 TH/MM3 Lymphocytes # (Auto) 2.9 TH/MM3 Monocytes # (Auto) 0.7 TH/MM3 Eosinophils # (Auto) 0.4 TH/MM3 Basophils # (Auto) 0.1 TH/MM3 CBC Comment DIFF FINAL Differential Comment D-Dimer Quantitative (PE/DVT) 0.54 MG/L FEU Blood Urea Nitrogen 11 MG/DL Creatinine 0.80 MG/DL Random Glucose 87 MG/DL Total Protein 6.9 GM/DL Albumin 3.7 GM/DL Calcium Level 8.7 MG/DL Alkaline Phosphatase 48 U/L Aspartate Amino Transf (AST/SGOT) 14 U/L Alanine Aminotransferase (ALT/SGPT) 39 U/L Total Bilirubin 0.3 MG/DL Sodium Level 142 MEQ/L Potassium Level 4.6 MEQ/L Chloride Level 109 MEQ/L Carbon Dioxide Level 27.2 MEQ/L Anion Gap 6 MEQ/L Estimat Glomerular Filtration Rate 84 ML/MIN Total Creatine Kinase 45 U/L Troponin I LESS THAN 0.02 NG/ML Urine Color YELLOW Urine Turbidity CLEAR Urine pH 5.0 Urine Specific [place] 1.012 Urine Protein NEG mg/dL Urine Glucose (UA) NEG mg/dL Urine Ketones NEG mg/dL Urine Occult Blood SMALL Urine Nitrite NEG Urine Bilirubin NEG Urine Urobilinogen LESS THAN 2 mg/dL Urine Leukocyte Esterase NEG Urine RBC 1 /hpf Urine WBC LESS THAN 1 /hpf Urine Squamous Epithelial Cells 4 /hpf Urine Mucus FEW /lpf Microscopic Urinalysis Comment CULT NOT INDICATED Urine Opiates Screen POS Urine Barbiturates Screen NEG Urine Amphetamines Screen NEG Urine Benzodiazepines Screen NEG Urine Cocaine Screen NEG Urine Cannabinoids Screen NEG MDM Medical Decision Making Medical Screen Exam Complete: Yes Emergency Medical Condition: Yes Interpretation(s) Last Impressions Head CT 03/01/18 1452 Signed Impressions: CONCLUSION: 1. Negative for acute process Chest X-Ray 03/01/18 0000 Signed Impressions: CONCLUSION: Mild cardiomegaly without failure. Correlation suggested to exclude cardiac dis ease.. 16 11 PM. CBC within normal limits. CMP within normal limits. Differential Diagnosis Differential diagnosis including side effect of medications, dehydration, electrolyte imbalance, head injury, chest wall pain, angina, NE, PE, pneumothorax. Narrative Course 32-year-old female with multiple complaints including low blood pressure, nausea , chest pain, shortness of breath, history of chronic back pain and pain medication. Normal saline solution 1 L IV bolus. Patient has mild elevated d- dimer. Patient elevated d-dimer in October of this year. CT pulmonary angiogram done at that time was negative for PE. Repeated normal saline solution 1 L IV bolus. Diagnosis Primary Impression: Atypical chest pain Additional Impressions: Cephalgia Qualified Codes: R51 - Headache Side effect of medication Patient Instructions: General Instructions Additional Instructions: Advised patient to stop taking morphine. Encourage p.o. fluid. Advised patient take NSAIDs for back pain. Follow-up with personal physician. Return if worse. Med/Other Pt SpecificInfo: Med Stopped Disposition: DISCHARGE HOME Condition: Stable Luis Dale MD Mar 01, 2018 15:03
--- NOTE | 2018-03-01 15:08 | RADRPT ---
EXAM DATE: 03/01/2018 1:51 PM EDT AGE/SEX: 32 years / Female INDICATIONS: Short of breath, chest pain. CLINICAL DATA: This is the patient's initial encounter. Patient reports that signs and symptoms have been present for 1 week and indicates a pain score of 3/10. MEDICAL/SURGICAL HISTORY: None. . breast augmentation, breast piercings that she could not soo ve COMPARISON: No prior exams available for comparison. FINDINGS: Lungs are under aerated. Cardiac silhouette prominent. Lungs are clear. No pleural effusion. Previous lumbar transpedicular fixation. Nipple rings. CONCLUSION: Mild cardiomegaly without failure. Correlation suggested to exclude cardiac disease.. Electronically signed by: Nash Horner MD 03/01/2018 3:07 PM EDT
[2018-03-01 15:11] VITALS: BP 107/57; PULSE 57; RESP 16; O2SAT 100
[2018-03-01 15:31] LABS: AUTOMATED NEUTROPHIL # 7.3 TH/MM3 (1.8-7.7); BASOPHIL # 0.1 TH/MM3 (0-0.2); BASOPHIL % 0.5 % (0.0-2.0); EOSINOPHIL # 0.4 TH/MM3 (0-0.4); EOSINOPHIL % 3.4 % (0.0-4.0); HEMATOCRIT 40.6 % (35.0-46.0); HEMOGLOBIN 13.9 GM/DL (11.6-15.3); LYMPH % 25.9 % (9.0-44.0); LYMPHOCYTE # 2.9 TH/MM3 (1.0-4.8); MEAN CELL VOLUME 93.5 FL (80.0-100.0); MEAN CORPUSCULAR HEMOGLOBIN 31.9 PG (27.0-34.0); MEAN CORPUSCULAR HGB CONC 34.1 % (32.0-36.0); MEAN PLATELET VOLUME 7.6 FL (7.0-11.0); MONOCYTE # 0.7 TH/MM3 (0-0.9); NEUT % 64.2 % (16.0-70.0); PLATELET COUNT 310 TH/MM3 (150-450); RED BLOOD COUNT 4.35 MIL/MM3 (4.00-5.30); RED CELL DISTRIBUTION WIDTH 12.8 % (11.6-17.2); WHITE BLOOD COUNT 11.3 TH/MM3 (4.0-11.0)
--- NOTE | 2018-03-01 15:58 | RADRPT ---
EXAM DATE: 03/01/2018 3:44 PM EDT AGE/SEX: 32 years / Female INDICATIONS: Patient fell and hit head. CLINICAL DATA: This is the patient's initial encounter. Patient reports that signs and symptoms have been present for 1 day and indicates a pain score of 3/10. MEDICAL/SURGICAL HISTORY: Cardiovascular disease. Pulmonary embolism. Tubal ligation. Breast augme ntation. RADIATION DOSE: 34.93 CTDI (mGy) COMPARISON: No prior exams available for comparison. TECHNIQUE: CT of the head without contrast. Using automated exposure control and adjustment of the mA and/or kV according to patient size, radiation dose was kept as low as reasonably achievable to ob tain optimal diagnostic quality images. FINDINGS: Cerebrum: The ventricles are normal for age. No evidence of midline shift, mass lesion, hemorrhage or acute infarction. No extraaxial fluid collections are seen. Posterior Fossa: The cerebellum and brainstem are intact. The 4th ventricle is midline. The cerebe llopontine angle is unremarkable. Extracranial: The visualized portion of the orbits is intact. Skull: The calvaria is intact. No evidence of skull fracture. CONCLUSION: 1. Negative for acute process Electronically signed by: Nash Horner MD 03/01/2018 3:56 PM EDT
[2018-03-01 16:00] VITALS: BP 103/55; PULSE 66; RESP 16; O2SAT 99
[2018-03-01 16:07] LABS: ALBUMIN 3.7 GM/DL (3.4-5.0); ALT (GPT) 39 U/L (10-53); AST (GOT) 14 U/L (15-37); BICARBONATE 27.2 MEQ/L (21.0-32.0); BLOOD UREA NITROGEN 11 MG/DL (7-18); CALCIUM 8.7 MG/DL (8.5-10.1); CHLORIDE 109 MEQ/L (98-107); GLOMERULAR FILTRATION RATE 84 ML/MIN (>89); GLUCOSE,RANDOM 87 MG/DL (74-106); SODIUM (NA) 142 MEQ/L (136-145)
[2018-03-01 16:47] LABS: ALKALINE PHOSPHATASE 48 U/L (45-117); TOTAL BILIRUBIN ADULT 0.3 MG/DL (0.2-1.0); TOTAL PROTEIN 6.9 GM/DL (6.4-8.2); TROPONIN I LESS THAN 0.02 NG/ML (0.02-0.05)
[2018-03-01 17:00] VITALS: BP 96/51; PULSE 72; RESP 18; O2SAT 97
[2018-03-01 18:00] VITALS: PULSE 63; RESP 15; O2SAT 99
[2018-03-01 19:12] LABS: BILIRUBIN, URINE NEG (NEG); BLOOD, URINE SMALL (NEG); GLUCOSE,URINE NEG (NEG); KETONE, URINE NEG (NEG); MUCUS URINE FEW /lpf (OCC); NITRITE,URINE NEG (NEG); SQUAMOUS EPITHELIAL CELL URINE 4 /hpf (0-5); URINE COLOR YELLOW (YELLW/STRAW); URINE LEUKOCYTE ESTERASE NEG (NEG)
--- NOTE | 2018-03-02 15:30 | EKG ---
Date Performed: 03/01/2018 Time Performed: 13:04:34 PTAGE: 32 years EKG: SINUS BRADYCARDIA POSSIBLE RIGHT VENTRICULAR CONDUCTION DELAY BORDERLINE ECG PREVIOUS TRACING : 02/24/2018 14.30 Since the previous tracing, no significant change noted DOCTOR: Tacho Suarez Interpretating Date/Time 03/02/2018 15:29:27
== END 2018-03-01 19:54 | disposition home or self-care (01) ==
LOC: NEPC 12:39
DX: R07.89 Other chest pain (principal); R51 Headache; R06.02 Shortness of breath; R11.0 Nausea; R53.1 Weakness; F17.200 Nicotine dependence, unspecified, uncomplicated; M54.9 Dorsalgia, unspecified; G89.29 Other chronic pain
CPT/HCPCS: 70450; 71046; 80053; 80307; 81001; 82550; 84484; 84703; 85025; 85379; 93005; 96360; 96361; 99285; J7030